=== PATIENT | male | born 1980 | race Caucasian/White ===

== ENCOUNTER 2021-05-03 16:35 | Emergency (ER) | payer BC ==
[~2021-05-03] VITALS: Ht 182.9 cm; Wt 90.7 kg
[2021-05-03 16:35] VITALS: BP_SYST 137
[2021-05-03] MEDS ORDERED: MORPHINE 4 MG INJ. 4 MG/ML VIAL IM ONE ×2 (17:00→18:00)
[2021-05-03] MEDS ORDERED: ONDANSETRON 4 MG ODT TAB PO ONE (17:00)
[2021-05-03] MEDS ORDERED: LIDOCAINE PATCH 5% 1 EA TP ONE (17:15)
[2021-05-03] MEDS ORDERED: BACLOFEN 10 MG TABLET PO ONE (17:15)
[2021-05-03] MEDS ORDERED: predniSONE 20 MG TABLET PO ONE (17:15)
[2021-05-03] MEDS ORDERED: IBUPROFEN 800 MG TABLET PO ONE (18:00)
[2021-05-03] MEDS ORDERED: DIAZEPAM 5 MG TABLET (VALIUM) PO ONE (18:00)
[2021-05-03] MEDS ORDERED: PRED20TA PO (18:30)
[2021-05-03] MEDS ORDERED: LIDO1ADH22 TP (18:30)
[2021-05-03] MEDS ORDERED: BACL10TA PO (18:30)
[2021-05-03] MEDS ORDERED: OXYC-128 PO (18:30)
[2021-05-03] MEDS ORDERED: IBUP-1969 PO (18:30)
[2021-05-03 19:03] VITALS: BP_SYST 127
== END 2021-05-03 19:04 | disposition home or self-care (01) ==
LOC: SED 16:35
DX: M54.41 Lumbago with sciatica, right side (principal); M62.830 Muscle spasm of back; Z79.899 Other long term (current) drug therapy
CPT/HCPCS: 96372; 99284; J2270; J7512; Q0162